=== PATIENT | male | born 1965 | race Caucasian/White ===

== ENCOUNTER 2017-02-09 12:06 | Inpatient (IN) | payer BC ==
[~2017-02-09] VITALS: Ht 172.7 cm; Wt 106.8 kg
[~2017-02-09 12:06] MED LIST: ANALGESIC325 MG PO; ATHLETIC FOOT C30 GM TP; DIFLUCAN200 MG PO; FLEXERIL10 MG PO; MOTRIN600 MG PO; NAPROSYN500 MG PO; NOHOMEMEDS; NORCO 5/3251 TABLET PO; Vibramycin, Doryx PO; ZOFRAN4 MG PO
[2017-02-09 12:51] LABS: BASOPHIL COUNT 0.1 K/uL (0-0.1); EOSINOPHIL (%) 2.8 % (0-5); EOSINOPHIL COUNT 0.3 K/uL (0-0.3); HEMATOCRIT 29.9 % (38.0-50.0); IMMATURE GRANULOCYTE (%) 0.5 % (0.0-0.7); IMMATURE GRANULOCYTE COUNT 0.1 K/uL; INSTRUMENT ABS NEUTROPHIL CT 7.7 K/uL; LYMPHOCYTE COUNT 2.5 K/uL (1.0-2.8); MCH 31.8 PG (29.0-34.0); MCHC 34.4 G/DL (30.0-36.0); MCV 92.3 FL (86-99); MEAN PLAT.VOLUME 11.1 uM^3 (9.0-12.4); MONOCYTE (%) 9.4 % (3-12); MONOCYTE COUNT 1.1 K/uL (0-0.8); NEUTROPHIL (%) 65.7 % (45-76); NEUTROPHIL COUNT 7.7 K/uL (1.8-6.4); PLATELET COUNT 130 K/uL (156-360); RBC DIS.WIDTH-CV 13.6 % (11.8-14.6); RBC DIS.WIDTH-SD 45.3 % (39-53); RED BLOOD COUNT 3.24 M/uL (4.00-5.50); WHITE BLOOD COUNT 11.7 K/uL (4.1-10.2)
[2017-02-09 13:03] LABS: CHLORIDE 111 mEq/L (99-109); POTASSIUM 3.9 mEq/L (3.7-5.4); SODIUM 143 mEq/L (136-147)
[2017-02-09 13:05] LABS: GLUCOSE 149 mg/dL (70-99)
[2017-02-09 13:07] LABS: ANION GAP 8 MEQ/L (2-14)
[2017-02-09 13:09] LABS: GFR ESTIMATE (CALCULATED) > 59 mL/min/
[2017-02-09 13:10] LABS: UREA NITROGEN (BUN) 29 mg/dL (9-23)
[2017-02-09 15:38] LABS: INTER. NORMALIZED RATIO 1.3; PROTHROMBIN TIME 14.4 SEC (10.2-12.9)
[2017-02-09 16:06] LABS: TOTAL BILIRUBIN 0.6 mg/dL (0.0-1.0)
[2017-02-09 16:07] LABS: ALKALINE PHOSPHATASE 53 IU/L (3-129)
[2017-02-09 16:10] LABS: DIRECT BILIRUBIN 0.3 mg/dL (0.0-0.3)
[2017-02-09] MEDS ORDERED: ADVIL,NUPRIN,M200 MG PO (16:46)
[2017-02-09] MEDS ORDERED: [UNRECOGNIZED DRUG - OTHER] PO (16:49)
[2017-02-09 17:14] LABS: ADD MIUA? NO; BILIRUBIN NEGATIVE; BLOOD NEGATIVE; COLOR YELLOW ((YELLOW)); GLUCOSE (STRIP) NEGATIVE; KETONES NEGATIVE; LEUKOCYTES NEGATIVE; NITRITE NEGATIVE; PROTEIN (STRIP) NEGATIVE; SPECIFIC GRAVITY 1.027 (1.000-1.030); UROBILINOGEN 0.2 MG/DL (0.2-1.0)
[2017-02-09 18:48] VITALS: BP 135/62
[2017-02-09 23:44] VITALS: BP 114/55
[2017-02-10] VITALS (15 sets, daily range): BP systolic 96–120; BP diastolic 48–62
[2017-02-10 06:03] LABS: ALKALINE PHOSPHATASE 43 IU/L (3-129); ANION GAP 6 MEQ/L (2-14); CHLORIDE 109 MEQ/L (99-109); GFR ESTIMATE (CALCULATED) > 59 mL/min/; POTASSIUM 3.5 MEQ/L (3.7-5.4); SAMPLE HEMOLYSIS CHECK 0; SAMPLE ICTERIC CHECK 0; SAMPLE LIPEMIA CHECK 0; SODIUM 139 MEQ/L (136-147); TOTAL BILIRUBIN 0.6 MG/DL (0.0-1.0); UREA NITROGEN (BUN) 22 mg/dL (9-23)
[2017-02-10 06:06] LABS: INTER. NORMALIZED RATIO 1.3; PROTHROMBIN TIME 14.6 SEC (10.2-12.9)
[2017-02-10 06:08] LABS: GLUCOSE 102 mg/dL (70-99); HEMATOCRIT 22.3 % (38.0-50.0); MCH 32.2 PG (29.0-34.0); MCV 92.1 FL (86-99); RBC DIS.WIDTH-CV 13.9 % (11.8-14.6); RBC DIS.WIDTH-SD 45.6 % (39-53); WHITE BLOOD COUNT 6.7 K/uL (4.1-10.2)
[2017-02-10 06:13] LABS: RED BLOOD COUNT 2.42 M/uL (4.00-5.50)
[2017-02-10 06:59] LABS: MEAN PLAT.VOLUME 11.3 uM^3 (9.0-12.4); PLAT.SUFFICIENCY DECREASED
[2017-02-10 07:07] LABS: PLATELET COUNT 90 K/uL (156-360)
[2017-02-10 08:11] LABS: HEMATOCRIT 22.3 % (38.0-50.0); MCV 92.5 FL (86-99)
[2017-02-10 15:51] LABS: EOSINOPHIL (%) 6.4 % (0-5); EOSINOPHIL COUNT 0.5 K/uL (0-0.3); HEMATOCRIT 27.7 % (38.0-50.0); IMMATURE GRANULOCYTE (%) 0.4 % (0.0-0.7); INSTRUMENT ABS NEUTROPHIL CT 4.2 K/uL; LYMPHOCYTE COUNT 1.7 K/uL (1.0-2.8); MCH 31.5 PG (29.0-34.0); MCHC 34.7 G/DL (30.0-36.0); MCV 90.8 FL (86-99); MEAN PLAT.VOLUME 10.7 uM^3 (9.0-12.4); MONOCYTE (%) 8.2 % (3-12); MONOCYTE COUNT 0.6 K/uL (0-0.8); NEUTROPHIL (%) 59.9 % (45-76); NEUTROPHIL COUNT 4.2 K/uL (1.8-6.4); PLATELET COUNT 96 K/uL (156-360); RBC DIS.WIDTH-CV 14.9 % (11.8-14.6); RBC DIS.WIDTH-SD 47.8 % (39-53); WHITE BLOOD COUNT 7.1 K/uL (4.1-10.2)
[2017-02-10 17:05] LABS: RED BLOOD COUNT 3.05 M/uL (4.00-5.50)
[2017-02-10 20:07] LABS: HEMATOCRIT 26.2 % (38.0-50.0); MCV 90.7 FL (86-99)
[2017-02-11 04:27] VITALS: BP 123/57
[2017-02-11 07:49] LABS: HEMATOCRIT 27.2 % (38.0-50.0); MCV 91.3 FL (86-99)
[2017-02-11 08:25] VITALS: BP 112/64
[2017-02-11 10:40] LABS: HBSG INDEX 0.18; HPCA INDEX 0.16
[2017-02-11 10:41] LABS: ANTI-HEPATITIS A VIRUS (IGM) Nonreactive; HAV INDEX 0.16
[2017-02-11 10:42] LABS: ANTI-HEPATITIS B CORE (IGM) Nonreactive; HBC IgM INDEX 0.06
[2017-02-11 11:15] VITALS: BP 111/58
[2017-02-11 19:45] VITALS: BP 116/66
[2017-02-11 20:26] LABS: HEMATOCRIT 28.3 % (38.0-50.0); MCV 90.7 FL (86-99)
[2017-02-11 23:33] VITALS: BP 117/62
[2017-02-12 03:34] VITALS: BP 108/45
[2017-02-12 07:08] VITALS: BP 96/54
[2017-02-12 08:39] LABS: MCV 90.9 FL (86-99)
[2017-02-12 10:40] VITALS: BP 104/56
[2017-02-12 16:00] VITALS: BP 120/59
[2017-02-12 19:29] VITALS: BP 118/58
[2017-02-12 20:19] LABS: HEMATOCRIT 27.9 % (38.0-50.0); MCV 91.8 FL (86-99)
[2017-02-13] VITALS: BP 116/54
[2017-02-13 04:35] VITALS: BP 129/64
[2017-02-13 07:12] VITALS: BP 110/56
[2017-02-13 08:27] LABS: MCV 91.5 FL (86-99)
[2017-02-13 10:54] VITALS: BP 103/56
[2017-02-13] MEDS ORDERED: PANTOPRAZOLE SO40 MG PO (12:21)
[2017-02-13] MEDS ORDERED: TYLENOL REGULA325 MG PO (12:21)
== END 2017-02-13 13:40 | disposition home or self-care (01) | DRG 378 ==
LOC: EME 12:06 → EDOF 16:43 → 5WEST 16:43 → EDOF 16:43 → ENRESERV 16:44 → 5WEST 18:09 → ENRESERV 02-10 10:46 → CANRESERV 02-12 01:21 → ENRESERV 02-12 01:21 → 5WEST 02-13 13:40
PROVIDERS: Internal Medicine; Nurse Practitioner Family; Physician Assistant; Physician Assistant Medical; Specialist
DX: K25.4 Chronic or unspecified gastric ulcer with hemorrhage (principal); D62 Acute posthemorrhagic anemia; D69.6 Thrombocytopenia, unspecified; K21.9 Gastro-esophageal reflux disease without esophagitis; Z86.74 Personal history of sudden cardiac arrest; I85.00 Esophageal varices without bleeding; K76.6 Portal hypertension; K31.89 Other diseases of stomach and duodenum; I51.89 Other ill-defined heart diseases; B94.8 Sequelae of other specified infectious and parasitic diseases; Z87.891 Personal history of nicotine dependence; R79.1 Abnormal coagulation profile; Z79.82 Long term (current) use of aspirin
CPT/HCPCS: 71010; 76705; 80048; 80053; 80074; 80076; 81003; 85014; 85018; 85025; 85027; 85610; 86850; 86900; 86901; 86920; 93005; 99281; 99285; C9113; G0378; J2354; J7030; J7050; P9016